=== PATIENT | male | born 1960 ===

== ENCOUNTER 2018-09-13 12:28 | Emergency (ER) | payer BC ==
[2018-09-13 12:54] VITALS: BP 124/80; PULSE 85; RESP 16; TEMP 97; O2SAT 98
--- NOTE | 2018-09-13 13:53 | ED PDOC ---
HPI: General Adult Time Seen by Provider: 09/13/18 13:48 Chief Complaint (Nursing): ENT Problem Chief Complaint (Provider): throat pain History Per: Patient (57 y/o male here with left sided throat pain x 2 weeks not improving with antibiotics. Was sent by Dr. Ha for studies. Notes additional intermittent numbness/cold sensation to distal index finger right hand on and off. ) Past Medical History Reviewed: Historical Data, Nursing Documentation, Vital Signs Vital Signs: Last Vital Signs Temp 97 F L 09/13/18 12:51 Pulse 85 09/13/18 12:51 Resp 16 09/13/18 12:51 BP 124/80 09/13/18 12:51 Pulse Ox 98 09/13/18 12:51 Primary Care Provider: Delvis Ha I - Medical History PMH: Hypothyroidism - Home Medications Home Medications: Ambulatory Orders Medication Instructions Recorded Naproxen 375 mg PO Q8 PRN #21 tablet 09/13/18 - Allergies Allergies/Adverse Reactions: Allergies Allergy/AdvReac Type Severity Reaction Status Date / Time No Known Allergies Allergy Verified 09/13/18 12:49 Physical Exam - Reviewed Nursing Documentation Reviewed: Yes Vital Signs Reviewed: Yes - Physical Exam Appears: Positive for: Well, Non-toxic, No Acute Distress Head Exam: Positive for: ATRAUMATIC, NORMAL INSPECTION, NORMOCEPHALIC Skin: Positive for: Normal Color, Warm, DRY Eye Exam: Positive for: EOMI, Normal appearance, PERRL ENT: Negative for: Normal ENT Inspection (left cervical neck fullness noted.) Neck: Positive for: Normal, Painless ROM Cardiovascular/Chest: Positive for: Regular Rate, Rhythm Respiratory: Positive for: CNT, Normal Breath Sounds Gastrointestinal/Abdominal: Positive for: Normal Exam, Soft Back: Positive for: Normal Inspection Extremity: Positive for: Normal ROM, Other (nontender index finger. No signs of infection. Good capillary refill) Neurological/Psych: Positive for: Awake, Alert, Normal Tone - Laboratory Results Result Diagrams: 09/13/18 14:00 09/13/18 14:00 - ECG O2 Sat by Pulse Oximetry: 98 - Progress ED Course And Treament: ct soft tissue of neck: 4.1 cm tongue base mass identified both at the left and right side of the tongue base extending inferiorly into the hypopharynx possibly the upper margins of the midline glottis. Mild left jugular digastric lymphadenopathy is suspicious for metastatic disease which shotty right-sided lymph nodes identified. Findings discussed with EKTA Mckeon with written down and read back verification 09/13/2018 5:05 p.m.. duplex upper extremity right FINDINGS: Normal flow, compressibility and respiratory phasicity was observed in the the left upper extremity deep veins. Incidental note is made of a reactive lymph node at the inferior right jugular digastric space measuring 2.1 x 1.0 cm including a 7.2 mm cortex IMPRESSION: No sonographic evidence of deep venous thrombosis. Incidentally noted mild right jugular digastric lymphadenopathy as per above. duplex arterial upper extremity right:IMPRESSION: There is no evidence of hemodynamically significant arterial insufficiency in right upper extremity. D/W DR. HA. CXR: NAD PATIENT TO F/U IN HIS OFFICE TOMORROW AT 10AM Disposition - Clinical Impression Clinical Impression: Tongue mass, Lymph node enlargement - Patient ED Disposition Is Patient to be Admitted: No - Disposition Referrals: Agus Hamilton MD [Staff Provider] - Disposition: Routine/Home Disposition Time: 18:27 Condition: FAIR Prescriptions: Naproxen 375 mg PO Q8 PRN #21 tablet PRN Reason: Pain, Moderate (4-7) Instructions: Generalized Neck Pain Forms: [facility] ED School/Work Excuse
[2018-09-13 14:12] LABS: BASO # 0.1 K/uL (0.0-0.2); BASO % 0.8 % (0.0-2.0); EOS # 0.2 K/uL (0.0-0.7); EOS % 2.3 % (0.0-4.0); HEMOGLOBIN 15.4 g/dL (12.0-18.0); LYMPH # 1.7 K/uL (1.0-4.3); LYMPH % 24.1 % (20.0-40.0); MEAN CELL VOLUME 91.3 fl (80.0-94.0); MEAN CORPUSCULAR HEMOGLOBIN 31.4 pg (27.0-31.0); MEAN CORPUSCULAR HGB CONC 34.4 g/dL (33.0-37.0); MEAN PLATELET VOLUME 8.4 fl (7.2-11.7); MONO # 0.5 K/uL (0.0-0.8); MONO % 7.1 % (0.0-10.0); NEUT # 4.5 K/uL (1.8-7.0); NEUT % 65.7 % (50.0-75.0); NRBC % 0.1 % (0.0-0.0); RBC 4.89 Mil/uL (4.40-5.90); RED CELL DISTRIBUTION WIDTH 13.8 % (11.5-14.5); WHITE BLOOD COUNT 6.9 K/uL (4.8-10.8)
[2018-09-13 14:20] LABS: ALB/GLOB RATIO 1.2 (1.0-2.1); ALBUMIN 4.5 g/dL (3.5-5.0); BLOOD UREA NITROGEN 21 mg/dl (9-20); CALCIUM 8.9 mg/dL (8.4-10.2); GFR NON-AFRICAN AMERICAN > 60
[2018-09-13 14:42] LABS: ALT/SGPT 35 U/L (21-72); AST/SGOT 33 U/L (17-59)
[2018-09-13] MEDS ORDERED: Sodium Chloride 0.9% 50 ML IV ONE (16:00)
[2018-09-13] MEDS ORDERED: Iohexol 300 100 ML IJ ONE (16:00)
--- NOTE | 2018-09-13 16:54 | US ---
Date of service: 09/13/2018 PROCEDURE: Right upper Extremity Venous Doppler HISTORY: NUMBNESS OF RIGHT INDEX FINGER COMPARISON: None available. TECHNIQUE: Right upper extremity deep veins, including the lower internal jugular, subclavian, axillary and brachial veins, were evaluated flow, compressibility and respiratory phasicity. FINDINGS: Normal flow, compressibility and respiratory phasicity was observed in the the left upper extremity deep veins. Incidental note is made of a reactive lymph node at the inferior right jugular digastric space measuring 2.1 x 1.0 cm including a 7.2 mm cortex IMPRESSION: No sonographic evidence of deep venous thrombosis. Incidentally noted mild right jugular digastric lymphadenopathy as per above.
--- NOTE | 2018-09-13 17:02 | US ---
Date of service: 09/13/2018 PROCEDURE: Right Upper Extremity Arterial ultrasound HISTORY: NUMBNESS OF RIGHT INDEX FINGER COMPARISON: None available. TECHNIQUE: Grayscale and duplex Doppler evaluation of the right upper extremity was performed. FINDINGS: RIGHT UPPER EXTREMITY: * Subclavian: Peak Systolic Velocity-78.0: Doppler Waveform: Triphasic.: Plaque description-none apparent * Common Carotid: Peak Systolic Velocity-67.9: Doppler Waveform: Triphasic.: Plaque description-none * Axillary: Peak Systolic Velocity-72.7: Doppler Waveform: Triphasic.: Plaque description-none * Brachial o Peak Systolic Velocity-48.6: Doppler Waveform: Triphasic.: Plaque description-none * Radial o Peak Systolic Velocity-60.1: Doppler Waveform: Triphasic.: Plaque description-none * Ulnar o Peak Systolic Velocity-36.2: Doppler Waveform: Triphasic.: Plaque description-none OTHER FINDINGS: No atherosclerotic calcification present IMPRESSION: There is no evidence of hemodynamically significant arterial insufficiency in right upper extremity.
--- NOTE | 2018-09-13 17:16 | CT ---
Date of service: 09/13/2018 PROCEDURE: CT NECK WITH CONTRAST HISTORY: r/o mass left side neck pain COMPARISON: None available. TECHNIQUE: CT of the neck with intravenous contrast. Coronal and sagittal reformats generated. Intravenous contrast dose: Omnipaque 300, 95 cc Radiation dose: Total exam DLP = 332.44 mGy-cm. This CT exam was performed using one or more of the following dose reduction techniques: Automated exposure control, adjustment of the mA and/or kV according to patient size, and/or use of iterative reconstruction technique. FINDINGS: NASOPHARYNX: Unremarkable. SUPRAHYOID NECK: Oropharynx is obscured by artifact related to dental hardware at the anterior and mid oral cavity. Nevertheless, there is abnormal enhancement within prominent soft tissue at the left greater than right tongue base collapsing in the left greater than right vallecula in a pattern suspicious for neoplasm. It extends likely to the level of the upper glottis posterior to the hyoid bone and measures 3.2 x 3.1 x 4.1 cm (transverse by anteroposterior by superoinferior dimensions). Direct visualization is advised. Correlation with ENT surgery is advised. Radiodense markers and placed at the site of left-sided palpable abnormality which appears to correspond to enlarged lymph node suspicious for metastatic disease given possible necrosis posteriorly, measuring 1.9 x 1.4 cm at the left level 2 B with left submandibular gland also mildly enlarged but without focal mass associated. No local reactive changes to suggest sialoadenitis though this is a possibility. No suspicious contrast enhancement related to the left submandibular gland with the right submandibular gland normal. Shotty jugular digastric lymph nodes identified bilaterally otherwise with no additional supra or infrahyoid neck mass evident. Unremarkable parapharyngeal space and retropharyngeal space. INFRAHYOID NECK: Unremarkable larynx, hypopharynx, and supraglottic space. Vocal cords intact. GLANDS: Parotid and right submandibular glands unremarkable. Normal size thyroid gland, without nodule. LYMPH NODES: Normal. No lymphadenopathy. CERVICAL SPINE: No fracture or focal lesion. VASCULAR STRUCTURES: Unremarkable. OTHER FINDINGS: None. IMPRESSION: 4.1 cm tongue base mass identified both at the left and right side of the tongue base extending inferiorly into the hypopharynx possibly the upper margins of the midline glottis. Mild left jugular digastric lymphadenopathy is suspicious for metastatic disease which shotty right-sided lymph nodes identified. Findings discussed with EKTA Mckeon with written down and read back verification 09/13/2018 5:05 p.m..
--- NOTE | 2018-09-13 18:27 | RAD ---
Date of service: 09/13/2018 HISTORY: routine COMPARISON: No prior. TECHNIQUE: Chest PA and lateral views FINDINGS: LUNGS: No active pulmonary disease. PLEURA: No significant pleural effusion identified. No pneumothorax apparent. CARDIOVASCULAR: No aortic atherosclerotic calcification present. No radiographic findings to suggest acute or significant cardiovascular disease. OSSEOUS STRUCTURES: No significant abnormalities. VISUALIZED UPPER ABDOMEN: Normal. OTHER FINDINGS: None. IMPRESSION: No active disease.
== END 2018-09-13 18:50 | disposition home or self-care (01) ==
LOC: H.ER 12:28
DX: K14.9 Disease of tongue, unspecified (principal); E03.9 Hypothyroidism, unspecified; R59.9 Enlarged lymph nodes, unspecified
CPT/HCPCS: 70491; 71046; 80053; 85025; 93931; 93971; 96374; 99283; J1885; Q9967